=== PATIENT | female | born 1955 | race Caucasian/White ===

== ENCOUNTER 2022-07-12 18:14 | Inpatient (IN) ==
[2022-07-12] MEDS ORDERED: Polyethylene Glycol 3350 17 GM PACKET PO PRN (21:29)
[2022-07-12] MEDS ORDERED: Dextrose 50% Syringe 50 ml 25 GM/50 ML SYRINGE IV PUSH PRN (22:26)
[2022-07-12 23:56] LABS: HDL Cholesterol 32.2 mg/dL
[2022-07-13 06:40] LABS: ABS Eosinophils 0.1 10^3/uL (0.0-0.5); ABS Lymphocytes 1.6 10^3/uL (1.0-4.8); ABS Monocytes 0.6 10^3/uL (0.0-0.9); ABS Neutrophils 2.5 10^3/uL (1.5-7.6); Eosinophil % 1.8 %; Hematocrit 38.3 % (35-45); Hemoglobin 13.4 g/dL (11.5-14.3); Lymphocyte % 33.7 %; Mean Corpuscular Hemoglobin 31.4 pg (27-33); Mean Corpuscular Hgb Conc 34.9 g/dL (31-36); Mean Corpuscular Volume 89.8 fL (80-97); Mean Platelet Volume 10.6 fL (7.5-11.2); Nucleated Red Blood Cells % 0.1 /100 WBC (0.0-0.4); Platelet Count 176 10^3/uL (150-450); Red Blood Count 4.27 10^6/uL (3.63-4.92); Red Cell Distribution Width 13.6 % (12-17); White Blood Count 4.8 10^3/uL (3.8-11.8)
[2022-07-13 07:15] LABS: Creatinine, Serum 1.07 mg/dL (0.51-0.95); Potassium 3.6 mmol/L (3.5-5.0)
[2022-07-13 07:16] LABS: Albumin 3.5 g/dL (3.2-5.2); Albumin/Globulin Ratio 1.5 (1-3); Calcium 8.3 mg/dL (8.6-10.3); Globulin 2.3 g/dL (2-4); Magnesium 2.2 mg/dL (1.9-2.7); Total Bilirubin 0.5 mg/dL (0.2-1.0); Total Protein 5.8 g/dL (6.4-8.9); eGFR CKD-EPI 57.6 (>60)
[2022-07-13] MEDS ORDERED: Sulfur Hexaflouride MICROSPHR 25 MG VIAL ONE (08:43)
[2022-07-13 10:41] LABS: High Sensitivity Troponin 1 Hr 48 pg/mL (<15)
[2022-07-13] MEDS ORDERED: Regadenoson 0.4 MG/5 ML SYRINGE ONE (11:53)
[2022-07-13] MEDS: Lactated Ringers 1000 ml BAG 1,000 ML IV SCH (16:06)
[2022-07-13] MEDS ORDERED: NS 0.9% 1000 ml BAG 1,000 ML IV SCH ×2 (16:45)
[2022-07-13 17:16] LABS: INR 1.5 (0.88-1.18)
[2022-07-14] MEDS: Lactated Ringers 1000 ml BAG 1,000 ML IV SCH (05:17)
[2022-07-14 06:13] LABS: ABS Eosinophils 0.1 10^3/uL (0.0-0.5); ABS Lymphocytes 1.4 10^3/uL (1.0-4.8); ABS Monocytes 0.4 10^3/uL (0.0-0.9); ABS Neutrophils 2.4 10^3/uL (1.5-7.6); Eosinophil % 2.6 %; Hematocrit 36.1 % (35-45); Hemoglobin 12.6 g/dL (11.5-14.3); Lymphocyte % 32.8 %; Mean Corpuscular Hemoglobin 30.9 pg (27-33); Mean Corpuscular Hgb Conc 34.8 g/dL (31-36); Mean Corpuscular Volume 88.7 fL (80-97); Mean Platelet Volume 10.5 fL (7.5-11.2); Nucleated Red Blood Cells % 0.1 /100 WBC (0.0-0.4); Platelet Count 163 10^3/uL (150-450); Red Blood Count 4.07 10^6/uL (3.63-4.92); Red Cell Distribution Width 13.5 % (12-17); White Blood Count 4.4 10^3/uL (3.8-11.8)
[2022-07-14 06:25] LABS: Calcium 8.6 mg/dL (8.6-10.3); Magnesium 2.1 mg/dL (1.9-2.7); Potassium 3.9 mmol/L (3.5-5.0); eGFR CKD-EPI 62.5 (>60)
[2022-07-14] MEDS ORDERED: Potassium Chlor 20 meq TAB.ER PO ONE (08:01)
[2022-07-14 09:00] LABS: ABS Eosinophils 0.1 10^3/uL (0.0-0.5); ABS Lymphocytes 1.4 10^3/uL (1.0-4.8); ABS Monocytes 0.4 10^3/uL (0.0-0.9); ABS Neutrophils 3.2 10^3/uL (1.5-7.6); ABS Nucleated RBC 0.01 10^3/ul; Eosinophil % 1.7 %; Hemoglobin 13.3 g/dL (11.5-14.3); Lymphocyte % 27.1 %; Mean Corpuscular Hgb Conc 34.3 g/dL (31-36); Mean Corpuscular Volume 90.5 fL (80-97); Mean Platelet Volume 10.3 fL (7.5-11.2); Nucleated Red Blood Cells % 0.1 /100 WBC (0.0-0.4); Platelet Count 202 10^3/uL (150-450); Red Blood Count 4.31 10^6/uL (3.63-4.92); Red Cell Distribution Width 13.7 % (12-17); White Blood Count 5.1 10^3/uL (3.8-11.8)
[2022-07-14] MEDS ORDERED: Heparin 5000 UNITS/ML 1 mL VIAL IV SCH (09:00)
[2022-07-14 09:37] LABS: Creatinine, Serum 0.95 mg/dL (0.51-0.95); eGFR CKD-EPI 66.5 (>60)
[2022-07-14] MEDS: Heparin DRIP 25,000 UNITS BAG 25,000 UNITS/500 ML BAG IV SCH (09:38)
[2022-07-14] MEDS ORDERED: Iodixanol (CONTRAST) 320 MG/ML 100 ML SDV IV ONE (15:20)
[2022-07-15 03:50] LABS: ABS Eosinophils 0.2 10^3/uL (0.0-0.5); ABS Lymphocytes 1.9 10^3/uL (1.0-4.8); ABS Monocytes 0.5 10^3/uL (0.0-0.9); ABS Neutrophils 2.3 10^3/uL (1.5-7.6); Eosinophil % 4.2 %; Hematocrit 36.3 % (35-45); Hemoglobin 12.6 g/dL (11.5-14.3); Lymphocyte % 38.7 %; Mean Corpuscular Hemoglobin 31.3 pg (27-33); Mean Corpuscular Hgb Conc 34.6 g/dL (31-36); Mean Corpuscular Volume 90.6 fL (80-97); Mean Platelet Volume 10.2 fL (7.5-11.2); Platelet Count 167 10^3/uL (150-450); Red Blood Count 4.01 10^6/uL (3.63-4.92); Red Cell Distribution Width 13.6 % (12-17); White Blood Count 4.8 10^3/uL (3.8-11.8)
[2022-07-15 04:35] LABS: Calcium 8.6 mg/dL (8.6-10.3)
[2022-07-15 04:40] LABS: eGFR CKD-EPI 62.5 (>60)
[2022-07-15] MEDS: Heparin DRIP 25,000 UNITS BAG 25,000 UNITS/500 ML BAG IV SCH (05:52)
[2022-07-16] MEDS: Heparin DRIP 25,000 UNITS BAG 25,000 UNITS/500 ML BAG IV SCH (03:44)
[2022-07-16 06:12] LABS: ABS Eosinophils 0.2 10^3/uL (0.0-0.5); ABS Lymphocytes 1.7 10^3/uL (1.0-4.8); ABS Monocytes 0.4 10^3/uL (0.0-0.9); ABS Neutrophils 2.1 10^3/uL (1.5-7.6); Eosinophil % 4.4 %; Hematocrit 36.4 % (35-45); Hemoglobin 12.7 g/dL (11.5-14.3); Lymphocyte % 39.8 %; Mean Corpuscular Hgb Conc 34.9 g/dL (31-36); Mean Corpuscular Volume 88.6 fL (80-97); Mean Platelet Volume 10.2 fL (7.5-11.2); Nucleated Red Blood Cells % 0.1 /100 WBC (0.0-0.4); Platelet Count 174 10^3/uL (150-450); Red Blood Count 4.11 10^6/uL (3.63-4.92); Red Cell Distribution Width 13.8 % (12-17); White Blood Count 4.4 10^3/uL (3.8-11.8)
[2022-07-16 06:33] LABS: Albumin 3.5 g/dL (3.2-5.2); Albumin/Globulin Ratio 1.7 (1-3); Calcium 8.8 mg/dL (8.6-10.3); Globulin 2.1 g/dL (2-4); Magnesium 1.9 mg/dL (1.9-2.7); Total Bilirubin 0.4 mg/dL (0.2-1.0); Total Protein 5.6 g/dL (6.4-8.9); eGFR CKD-EPI 62.5 (>60)
[2022-07-16 07:23] LABS: Fasting Glucose 92 mg/dL
[2022-07-16 14:04] LABS: Calcium 9.2 mg/dL (8.6-10.3); Creatinine, Serum 1.07 mg/dL (0.51-0.95); Potassium 4.1 mmol/L (3.5-5.0); eGFR CKD-EPI 57.6 (>60)
[2022-07-17] MEDS ORDERED: NS 0.9% 1000 ml BAG 1,000 ML IV SCH (06:00)
[2022-07-17 06:03] LABS: Calcium 9.1 mg/dL (8.6-10.3); Creatinine, Serum 0.94 mg/dL (0.51-0.95); Potassium 4.3 mmol/L (3.5-5.0); eGFR CKD-EPI 67.3 (>60)
[2022-07-17] MEDS ORDERED: fentaNYL 100 mcg/2 ml 50 MCG/ML VIAL ONE (10:26)
[2022-07-17] MEDS ORDERED: Midazolam 5 mg/5 ml VIAL 1 mg/ml 5 ml VIAL (5 mg) ONE (10:26)
[2022-07-17] MEDS ORDERED: Heparin 2 UNITS/ML 1000 mls 2,000 ML IV ONE (10:27)
[2022-07-17] MEDS ORDERED: nitroGLYCERIN DRIP 25,000 MCG/250 ML BTL ONE (10:27)
[2022-07-17] MEDS ORDERED: Iohexol 350 (CONTRAST) 200 ML MDV IV ONE (10:27)
[2022-07-17] MEDS ORDERED: niCARdipine 0.1MG/ML IVPREMIX 20 MG/200 ML BAG IV ONE (10:27)
[2022-07-17] MEDS ORDERED: Lidocaine 1% MPF 5 ML VIAL ONE ×2 (10:27→10:48)
[2022-07-17] MEDS ORDERED: Heparin 1,000 UNIT/ML 10 ml (10,000 UNITS) CATHLAB/DIALYSIS ONE (10:48)
[2022-07-17] MEDS ORDERED: Heparin 2 UNITS/ML 1000 mls 1,000 ML IV ONE (10:48)
[2022-07-17 21:37] VITALS: BP 140/70
== END 2022-07-17 16:20 | disposition home or self-care (01) | DRG 287 ==
LOC: ED 18:14 → EDHOLD 18:14 → SUATTDRO 21:04 → MEDTELE 22:06 → SUATTDRO 07-14 14:16
PROVIDERS: ADMIT Internal Medicine; ATTEND Internal Medicine

== ENCOUNTER 2022-10-12 07:35 | Observation (INO) ==
[~2022-10-12 07:35] MED LIST: Acetaminophen IV 1 GM/100ML 1,000 MG/100 ML BAG IV ONE; Buffered Lidocaine 1% SYRIN 1 ml INTRADERM ONE; Dexamethasone IV 4 MG/ML VIAL 1 ml VIAL ONE; Lactated Ringers 1000 ml BAG 1,000 ML IV SCH; Lidocaine 2% PF 5 ML VIAL ONE; Midazolam 2 mg/2 ml VIAL 1 mg/ml 2 ml VIAL (2 mg) ONE; Ondansetron 4 mg VIAL 2 MG/ML 2 ml VIAL ONE; Phenylephrine IV 10 MG/ML 1 ml VIAL ONE; Propofol 10 MG/ML 20 ML BTL ONE; Rocuronium 50 mg VIAL 10 mg/ml 5 ml VIAL (50 mg) ONE; Sevoflurane BOTTLE ONE; Sterile Water for Inj 10 ML ONE; fentaNYL 250 mcg/5 ml 50 MCG/ML 5 ml VIAL (250 MCG) ONE
[2022-10-12] MEDS ORDERED: Chlorhexidine MOUTHWASH 0.12% 15 ML UDC ONE (08:11)
[2022-10-12] MEDS ORDERED: Buffered Lidocaine 1% SYRIN 1 ml ONE (08:13)
[2022-10-12] MEDS ORDERED: ceFAZolin 2 GM in NS PREMIX 2 GM/100 ML BAG IVPB ONE (08:16)
[2022-10-12 08:25] LABS: Rapid COVID-19 Molecular Undetected (Undetected)
[2022-10-12] MEDS ORDERED: Naloxone 0.4 mg VIAL 0.4 mg/ml 1 ml VIAL IV PRN (09:39)
[2022-10-12] MEDS ORDERED: Calcium Carb (TUMS) 500 mg CHEW TAB PO PRN (10:42)
[2022-10-12] MEDS ORDERED: Morphine 2 MG/ML SYRINGE IV PRN (10:42)
[2022-10-12] MEDS ORDERED: HYDROcodone/ACETAMIN 5/325 mg TAB PO PRN (10:42)
[2022-10-12] MEDS ORDERED: Senna TAB 8.6 mg TAB PO PRN (10:42)
[2022-10-12] MEDS ORDERED: Prochlorperazine 5 mg/ml 2 ml VIAL (10 mg) IV PRN (10:47)
[2022-10-12] MEDS ORDERED: HYDROmorphone 1 MG/1 ML SYRINGE ONE (10:57)
[2022-10-12] MEDS: HYDROmorphone 1 MG/1 ML SYRINGE IV PRN ×3 (11:00→11:16)
[2022-10-12] MEDS ORDERED: Lactated Ringers 1000 ml BAG 1,000 ML IV SCH (11:00)
[2022-10-12] MEDS: HYDROcodone/ACETAMIN 5/325 mg TAB PO PRN (19:53)
[2022-10-12] MEDS ORDERED: Insulin GLARGINE 100 un/ml 10 ml VIAL SUBCUT SCH (21:00)
[2022-10-13] MEDS: HYDROcodone/ACETAMIN 5/325 mg TAB PO PRN ×2 (05:26→10:07)
[2022-10-13 09:11] VITALS: BP 136/78
== END 2022-10-13 10:30 | disposition home or self-care (01) ==
LOC: OR 07:35 → SSU 07:35
PROVIDERS: ADMIT Physician Assistant; ATTEND Neurological Surgery

== ENCOUNTER 2023-11-23 05:33 | Observation (INO) ==
[~2023-11-23 05:33] MED LIST changes: -Acetaminophen IV 1 GM/100ML 1,000 MG/100 ML BAG IV ONE; -Buffered Lidocaine 1% SYRIN 1 ml INTRADERM ONE; -Dexamethasone IV 4 MG/ML VIAL 1 ml VIAL ONE; -Lactated Ringers 1000 ml BAG 1,000 ML IV SCH; -Lidocaine 2% PF 5 ML VIAL ONE; +Metoclopramide 5 MG/ML VIAL (10 mg) IV PRN; -Midazolam 2 mg/2 ml VIAL 1 mg/ml 2 ml VIAL (2 mg) ONE; +NS 0.45% 1000 ml BAG 1,000 ML IV SCH; +Naloxone 0.4 mg VIAL 0.4 mg/ml 1 ml VIAL IV PRN; +Ondansetron 4 mg VIAL 2 MG/ML 2 ml VIAL IV PRN; -Ondansetron 4 mg VIAL 2 MG/ML 2 ml VIAL ONE; -Phenylephrine IV 10 MG/ML 1 ml VIAL ONE; -Propofol 10 MG/ML 20 ML BTL ONE; -Rocuronium 50 mg VIAL 10 mg/ml 5 ml VIAL (50 mg) ONE; -Sevoflurane BOTTLE ONE; -Sterile Water for Inj 10 ML ONE; +fentaNYL 100 mcg/2 ml 50 MCG/ML VIAL IV PRN; -fentaNYL 250 mcg/5 ml 50 MCG/ML 5 ml VIAL (250 MCG) ONE
[2023-11-23] MEDS ORDERED: Tranexamic Acid 1 GM/100ML BAG 2,000 MG/200 ML BAG IV ONE (06:08)
[2023-11-23] MEDS ORDERED: ceFAZolin 2 GM PREMIX 2 GM/50 ML BAG ONE (06:09)
[2023-11-23] MEDS: Buffered Lidocaine 1% SYRIN 1 ml INTRADERM ONE (06:22)
[2023-11-23] MEDS: Lactated Ringers 1000 ml BAG 1,000 ML IV SCH ×2 (06:22→12:49)
[2023-11-23] MEDS: Scopolamine 1 mg/72hr PATCH TRANSDERM ONE (06:23)
[2023-11-23 06:29] LABS: Rapid COVID-19 Molecular Undetected (Undetected)
[2023-11-23] MEDS ORDERED: ROPIVACAINE 5 MG/ML 30 ML BTL (0.5%) ONE ×2 (06:53→07:09)
[2023-11-23] MEDS ORDERED: Lidocaine 1% VIAL 10 MG/ML 30 ML VIAL ONE (07:09)
[2023-11-23] MEDS ORDERED: Midazolam 2 mg/2 ml VIAL 1 mg/ml 2 ml VIAL (2 mg) ONE ×2 (07:09→08:58)
[2023-11-23] MEDS ORDERED: fentaNYL 100 mcg/2 ml 50 MCG/ML VIAL ONE (07:10)
[2023-11-23] MEDS ORDERED: Phenylephrine IV 10 MG/ML 1 ml VIAL ONE (08:59)
[2023-11-23] MEDS: Acetaminophen IV 1 GM/100ML 1,000 MG/100 ML BAG IV ONE (10:27)
[2023-11-23] MEDS ORDERED: Calcium Carb (TUMS) 500 mg CHEW TAB PO PRN (10:59)
[2023-11-23] MEDS ORDERED: Magnesium Hydroxide LIQ 30 ML UDC PO PRN (10:59)
[2023-11-23] MEDS ORDERED: Lactulose 30 ml UDC PO PRN (10:59)
[2023-11-23] MEDS ORDERED: Ondansetron ODT 4 mg TAB 4 MG TAB PO PRN (10:59)
[2023-11-23] MEDS ORDERED: Morphine 2 MG/ML SYRINGE IV PRN (10:59)
[2023-11-23] MEDS ORDERED: TIRZEPATIDE 2.5 MG/0.5 ML SUBCUT SCH (11:15)
[2023-11-23] MEDS: ceFAZolin 2 GM PREMIX 2 GM/50 ML BAG IV SCH (16:07)
[2023-11-23 16:45] VITALS: BP 126/74
[2023-11-23] MEDS ORDERED: Magnesium Hydroxide LIQ 30 ML UDC PO SCH (21:00)
[2023-11-24] MEDS ORDERED: Vitamin THERAPEUTIC TAB PO SCH (09:00)
== END 2023-11-23 17:38 | disposition home or self-care (01) ==
LOC: SSU 05:33 → OR 05:33
PROVIDERS: ADMIT Orthopaedic Surgery Adult Reconstructive Orthopaedic Surgery; ATTEND Orthopaedic Surgery Adult Reconstructive Orthopaedic Surgery